=== PATIENT | female | born 1960 | race Caucasian/White ===

== ENCOUNTER 2016-07-21 14:14 | Observation (INO) | payer OTHER ==
[~2016-07-21] VITALS: Ht 162.6 cm; Wt 46.0 kg
[~2016-07-21 14:14] MED LIST: ALBUTEROL IN200 PUFF INH; ALBUTEROL0.63 MG/3 NEB; AUGMENTIN 875-1 EACH PO; CELEXA20 MG PO; CELEXA40 MG PO; DIFLUCAN100 MG PO; DIFLUCAN150 MG PO; DUONEB 2.5-0.5MG3 ML NEB; ENSURE LIQUID237 ML PO; EPIPEN 2-P0.3 MG/0.3 INJ; FLAGYL500 MG PO; FLONASE 0.05% N16 GM; HYDROCODON-ACE1 EAC6 PO; LEVAQUIN500 MG PO; LEVAQUIN750 MG PO; LEVOCETIRIZINE D5 MG PO; MEDROL4 M1 PO; NICODERM 14MG PA1 EA TD; NICODERM 21MG PA1 EA TD; PANTOPRAZOLE SO40 MG PO; PHENERGAN25 M1 PO; PRILOSEC40 MG PO; REMERON15 MG PO; SINGULAIR10 MG PO; TRIAMCINOLONE A15 GM TP; TYLENOL325 M1 PO; VALIUM5 MG PO; ZANAFLEX4 MG PO; ZOCOR10 MG PO
[2016-07-21 16:05] LABS: BASO % 0.2 % (0.1-1.2); EOS % 0.1 % (0.7-5.8); GRAN # 15.7 10_X3_uL (1.6-6.1); GRAN % 91.1 % (34.0-71.1); HEMATOCRIT 40.3 % (34-45); HEMOGLOBIN 13.6 g/dL (11.2-15.7); LYMPH # 1.1 10_X3_uL (1.2-3.7); LYMPH % 6.5 % (19.3-51.7); MEAN CORPUSCULAR HEMOGLOBIN 32.7 pg (27.0-33.0); MEAN CORPUSCULAR HGB CONC 33.7 g/dL (32.0-36.0); MEAN CORPUSCULAR VOLUME 96.9 fL (79-95); MEAN PLATELET VOLUME 9.2 fl (7.5-11.5); MONO # 0.4 10_X3_uL (0.2-0.9); MONO % 2.1 % (4.7-12.5); PLATELET COUNT 380 x10_3/uL (182-369); RED BLOOD COUNT 4.16 x10_6/uL (3.9-5.2); RED CELL DISTRIBUTION WIDTH 12.9 % (11.7-14.4); WHITE BLOOD COUNT 17.3 x10_3/uL (4.0-10.0)
[2016-07-21 16:28] LABS: ALBUMIN 3.9 gm/dL (3.4-5.0); ALKALINE PHOSPHATASE 80 U/L (50-136); ALT/SGPT 12 U/L (3.5-33.9); AST/SGOT 20 U/L (7.04-26.96); BILIRUBIN,TOTAL 0.18 mg/dL (0.0-1.0); BLOOD UREA NITROGEN 13 mg/dL (7-18); CALCIUM 9.7 mg/dL (8.7-10.7); CARBON DIOXIDE 28 mmol/L (21-32); CREATININE 0.6 mg/dL (0.6-1.3); GLUCOSE,RANDOM 127 mg/dL (70-99); SODIUM 142 mmol/L (136-145); TOTAL PROTEIN 6.8 gm/dL (6.4-8.2)
[2016-07-21 16:29] LABS: POTASSIUM 4.6 mmol/L (3.5-5.1)
[2016-07-22 06:20] LABS: HEMATOCRIT 40.7 % (34-45); HEMOGLOBIN 13.5 g/dL (11.2-15.7); MEAN CORPUSCULAR HEMOGLOBIN 32.1 pg (27.0-33.0); MEAN CORPUSCULAR HGB CONC 33.2 g/dL (32.0-36.0); MEAN CORPUSCULAR VOLUME 96.9 fL (79-95); MEAN PLATELET VOLUME 9.1 fl (7.5-11.5); RED BLOOD COUNT 4.2 x10_6/uL (3.9-5.2); RED CELL DISTRIBUTION WIDTH 12.8 % (11.7-14.4); WHITE BLOOD COUNT 11.2 x10_3/uL (4.0-10.0)
[2016-07-22 06:37] LABS: BLOOD UREA NITROGEN 10 mg/dL (7-18); CALCIUM 9.1 mg/dL (8.7-10.7); CARBON DIOXIDE 26 mmol/L (21-32); CREATININE < 0.5 mg/dL (0.6-1.3); GLUCOSE,RANDOM 148 mg/dL (70-99); POTASSIUM 4.4 mmol/L (3.5-5.1); SODIUM 141 mmol/L (136-145)
[2016-07-23 07:01] LABS: HEMATOCRIT 40.1 % (34-45); HEMOGLOBIN 13.3 g/dL (11.2-15.7); MEAN CORPUSCULAR HEMOGLOBIN 32.3 pg (27.0-33.0); MEAN CORPUSCULAR HGB CONC 33.2 g/dL (32.0-36.0); MEAN CORPUSCULAR VOLUME 97.3 fL (79-95); MEAN PLATELET VOLUME 9.3 fl (7.5-11.5); RED BLOOD COUNT 4.12 x10_6/uL (3.9-5.2); RED CELL DISTRIBUTION WIDTH 13.1 % (11.7-14.4); WHITE BLOOD COUNT 15.8 x10_3/uL (4.0-10.0)
[2016-07-23 07:04] LABS: ALBUMIN 3.4 gm/dL (3.4-5.0); ALKALINE PHOSPHATASE 69 U/L (50-136); ALT/SGPT 14 U/L (3.5-33.9); AST/SGOT 15 U/L (7.04-26.96); BLOOD UREA NITROGEN 15 mg/dL (7-18); CALCIUM 9.1 mg/dL (8.7-10.7); CARBON DIOXIDE 26 mmol/L (21-32); CREATININE 0.5 mg/dL (0.6-1.3); GLUCOSE,RANDOM 144 mg/dL (70-99); POTASSIUM 4.1 mmol/L (3.5-5.1); SODIUM 139 mmol/L (136-145)
[2016-07-23 07:09] LABS: BILIRUBIN,TOTAL < 0.15 mg/dL (0.0-1.0)
== END 2016-07-23 12:12 | disposition home or self-care (01) ==
LOC: MS 14:14
PROVIDERS: ADMIT Family Medicine
DX: J18.9 Pneumonia, unspecified organism (principal); J44.1 Chronic obstructive pulmonary disease with (acute) exacerbation; R91.1 Solitary pulmonary nodule; D72.829 Elevated white blood cell count, unspecified; R11.0 Nausea; F41.9 Anxiety disorder, unspecified; F32.9 Major depressive disorder, single episode, unspecified; K21.9 Gastro-esophageal reflux disease without esophagitis; E78.5 Hyperlipidemia, unspecified; K58.9 Irritable bowel syndrome, unspecified; M85.80 Other specified disorders of bone density and structure, unspecified site; E56.9 Vitamin deficiency, unspecified; Z88.6 Allergy status to analgesic agent; Z88.8 Allergy status to other drugs, medicaments and biological substances; Z79.899 Other long term (current) drug therapy
CPT/HCPCS: 36415; 71250; 80048; 80053; 85025; 86738; 87040; 87070; 87205; 87449; 94640; 94664; 96361; 96365; 96366; 96367; 96372; 96375; 96376; G0378; J2930; Q0169